=== PATIENT | male | born 2000 | race African-American/Black ===

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

== ENCOUNTER 2022-07-06 10:15 | Emergency (ER) | payer OTHER ==
[2022-07-06 10:31] LABS: Bacteria/HPF None Seen HPF (None Seen); Bilirubin Negative (Negative); Blood, Urine Trace (Negative); Clarity Turbid (Clear); Glucose, Urine (Dipstick) Normal (Negative); Ketone, Urine Negative (Negative); Leukocyte Negative Leu/uL (Negative); Nitrite Negative (Negative); Protein, Urine (Dipstick) Negative (Neg-Trace); RBC/HPF 0-3 HPF (0-3); Specific Gravity, Urine 1.025 (1.002-1.036); Squamous Epithelial None Seen HPF (0-3); Urobilinogen 3 mg/dL (Less than 2); WBC/HPF 0-3 HPF (0-3)
[2022-07-07 17:21] LABS: Chlam.trachomatis by PCR,Urine Not Detected (NotDetected)
== END 2022-07-06 11:56 | disposition home or self-care (01) ==
LOC: ERS 10:15
DX: R30.0 Dysuria (principal)
CPT/HCPCS: 81003; 81015; 87491; 87591; 99283